=== PATIENT | male | born 1980 | race Caucasian/White ===

== ENCOUNTER → 2024-10-22 | Outpatient (CLI) | payer OTHER, SELFPAY | END | disposition home or self-care (01) | PROVIDERS: PCP Nurse Practitioner; Referring Provider Nurse Practitioner; Visit Provider Nurse Practitioner | DX: L03.317 Cellulitis of buttock (principal); E11.628 Type 2 diabetes mellitus with other skin complications; L03.119 Cellulitis of unspecified part of limb | CPT/HCPCS: 87070; 87077; 87186; 87205 ==